=== PATIENT | female | born 1995 | race Hispanic/Latino ===

== ENCOUNTER 2022-03-24 15:31 | Emergency (ER) | payer OTHER ==
[~2022-03-24 15:31] MED LIST: Iopamidol 370 76% 100 ML VIAL ONE
[2022-03-24] MEDS ORDERED: Boostrix 0.5 ML (Tdap) VIAL ONE (16:32)
[2022-03-24] MEDS ORDERED: Bacitracin 1 PK ONE ×2 (16:32→16:54)
[2022-03-24] MEDS ORDERED: Sodium Chloride 0.9% 1,000 ML ONE (16:32)
[2022-03-24 16:43] LABS: #Basophils 0.1 thou/uL (0.0-0.2); #Lymphocytes 1.8 thou/uL (1.20-3.40); #Monocytes 0.6 thou/uL (0.11-0.59); #Neutrophils 9.4 thou/uL (1.40-6.50); %Basophils 0.6 % (0.0-1.0); %Eosinophils 0.1 % (0.0-10.0); %Lymphocytes 14.9 % (21.0-51.0); %Monocytes 4.8 % (0.0-10.0); %Neutrophils 79.5 % (42.0-75.0); Hemoglobin 13.8 g/dL (12.0-16.0); Mean Corpuscular HGB CONC 33.7 g/dL (32.0-36.0); Mean Corpuscular Hemoglobin 29.2 pg (27.0-31.0); Mean Corpuscular Volume 86.6 fL (78.0-98.0); Mean Platelet Volume 10.3 fL (7.4-10.4); Platelet Count 212 thou/uL (130-400); RBC Distribution Width 12.2 % (11.5-14.5); Red Blood Cell (RBC) Count 4.74 mill/uL (4.20-5.40); White Blood Cell (WBC) Count 11.9 thou/uL (4.8-10.8)
[2022-03-24 16:52] LABS: BHCG - Serum Negative (NEGATIVE); Pregs Control Background? CLEAR/WHITE (CLR/WHITE); Pregs Control Bar Appear? YES (CONTROL BAR)
[2022-03-24 16:59] LABS: ALT (SGPT) 17 U/L (8-55); AST (SGOT) 20 U/L (5-34); Albumin 4.2 g/dL (3.5-5.0); Alkaline Phosphatase 65 U/L (40-110); Anion Gap 16 mmol/L (10-20); BUN (Urea Nitrogen) 13 mg/dL (7.0-18.7); Bilirubin, Total 0.3 mg/dL (0.2-1.2); Calc. Creatinine Clearance 0 mL/min (70-130); Calcium 9.1 mg/dL (7.8-10.44); Carbon Dioxide 23 mmol/L (22-29); Chloride 106 mmol/L (98-107); Globulin 2.7 g/dL (2.4-3.5); Glucose 116 mg/dL (70-105); Potassium 3.8 mmol/L (3.5-5.1); Protein, Total 6.9 g/dL (6.0-8.3); Sodium 141 mmol/L (136-145)
[2022-03-24 17:38] LABS: Bilirubin Negative (Negative); Blood, Urine Small (Negative); Glucose, Urine (Dipstick) Negative (Negative); Ketone, Urine Negative (Negative); Leukocyte Trace (Negative); Nitrite Negative (Negative); Protein, Urine (Dipstick) Negative (Neg-Trace); Urobilinogen 0.2 mg/dL (Less than 2)
[2022-03-24 17:39] LABS: Clarity Hazy (Clear)
[2022-03-24 17:48] LABS: WBC/HPF 0-3 HPF (0-3)
[2022-03-24 17:49] LABS: Bacteria/HPF 1+ HPF (None Seen)
== END 2022-03-24 19:27 | disposition home or self-care (01) ==
LOC: MADERS 15:31
DX: S16.1XXA Strain of muscle, fascia and tendon at neck level, initial encounter (principal); S00.31XA Abrasion of nose, initial encounter; S30.810A Abrasion of lower back and pelvis, initial encounter; S80.212A Abrasion, left knee, initial encounter; S80.211A Abrasion, right knee, initial encounter; R31.9 Hematuria, unspecified; N83.291 Other ovarian cyst, right side; V43.52XA Car driver injured in collision with other type car in traffic accident, initial encounter; Z23 Encounter for immunization
CPT/HCPCS: 70450; 72125; 74177; 80053; 81003; 81015; 84703; 85025; 90471; 90715; G0390; J7050; Q9967